=== PATIENT | female | born 1945 | race Caucasian/White ===

== ENCOUNTER 2016-05-13 01:05 | Inpatient (IN) | payer MEDICARE ==
[~2016-05-13] VITALS: Ht 154.9 cm; Wt 46.1 kg
[~2016-05-13 01:05] MED LIST: ALLER-CHLOR4 MG PO; ASPIRIN325 MG PO; ATIVAN0.5 MG PO; ATROVENT 0.03%30 ML NS; DALIRESP500 MCG PO; DULERA 100 MCG8.8 GM INH; FLUTICASONE PRO16 GM NASAL; IPRAT-ALBUT 0.5-3 ML UPD; LIPITOR40 MG PO; MUCINEX DM ER1 EAC1 PO; NICODERM C1 PATCH .1 TD; NICODERM C1 PATCH .1 TRANSDERM; OMNICEF300 MG PO; ORAPRED ODT10 MG/TAB PO; PERFOROMIS20 MCG/21 NEB; PREDNISONE20 MG PO; PROZAC20 MG PO; PULMICORT0.5 MG/21 INH; SINGULAIR10 MG PO; SYNTHROID50 MCG PO; ULTRAM50 MG PO; VENTOLIN HFA18 GM INH; VITAMIN D5000 UNIT PO; ZITHROMAX TRI-500 MG PO
[2016-05-13 01:36] LABS: BASOPHILS 0.1 % (0.0-2.0); EOSINOPHILS 0 % (0-7); HEMATOCRIT 56.3 % (36.0-48.0); HEMOGLOBIN 18.6 g/dL (12-16); IMMATURE GRANULOCYTES 0.1 % (0-5); LYMPHOCYTES 18.2 % (15-50); MCH 31.4 pg (26.0-34.0); MCV 95.1 fL (80.0-100.0); MEAN PLATELET VOLUME 9.6 fL (7.4-10.4); MONOCYTES 9.8 % (2-11); NEUTROPHILS 71.8 % (40-80); PLATELET COUNT 179 10x3/uL (130-400); RBC 5.92 10x6/uL (4.00-5.40); RDW 14.2 % (11.5-14.5); WBC 8.4 10x3/uL (4.8-10.8)
[2016-05-13 02:01] LABS: ALKALINE PHOSPHATASE 101 U/L (46-116); ALT (SGPT) 21 U/L (10-68); CALC OSMOLALITY 275 mosm/kg (275-300); CALCIUM 9.6 mg/dL (8.5-10.1); CARBON DIOXIDE 33.3 mmol/L (21.0-32.0); CHLORIDE - SERUM 96 mmol/L (98-107); CREATININE - SERUM 0.7 mg/dL (0.6-1.3); GLUCOSE 132 mg/dL (74-106); POTASSIUM - SERUM 4.6 mmol/L (3.5-5.1); PROTEIN - SERUM 8.5 g/dL (6.4-8.2); SODIUM 137 mmol/L (136-145); UREA NITROGEN 13 mg/dL (7-18); eGFR NON AFRICAN AMERICAN 87 mL/min (90-120)
--- NOTE | 2016-05-13 04:02 | NUR ---
RECEIVED FROM ER, VITALS ARE STABLE, IV-RAC-SL, 02-2L, PT DENIES ANY NEEDS, CALL LIGHT IN REACH, BED IS LOW, SRX2
[2016-05-13] MEDS ORDERED: LIPITOR80 MG PO (04:09)
--- NOTE | 2016-05-13 04:11 | NUR ---
PT ARRIVED FROM ER VIA STRETCHER WITH DX COPD EXACERBATION. NO DISTRESS NOTED. WILL CONTINUE TO MONITOR. SR UP X2, CALL LIGHT WITHIN REACH.
[2016-05-13 04:27] VITALS: BP 152/79; BMI 20.2
[2016-05-13 07:28] VITALS: BP 139/71
[2016-05-13 11:57] VITALS: BP 168/86
[2016-05-13 15:10] VITALS: BP 126/72
--- NOTE | 2016-05-13 19:20 | NUR ---
RESUMED CARE OF PT, 02-2L, IV-RAC-SL,SITTING UP ON SIDE OF BED, VISITING WITH DAUGHTER, DENIES ANY NEEDS, CALL LIGHT IN REACH, WILL CONTINUE TO MONITOR
[2016-05-13 20:00] VITALS: BP 127/73
--- NOTE | 2016-05-13 23:49 | NUR ---
LOGISTIC SPECIALIST AT BEDSIDE TO OBTAIN VITALS, CALL LIGHT IN REACH. WILL CONTINUE TO MONITOR.
[2016-05-14] VITALS: BP 125/76
--- NOTE | 2016-05-14 02:22 | NUR ---
SLEEPING, BED IS LOW, SRX2, CALL LIGHT IN REACH
[2016-05-14 04:00] VITALS: BP 117/72
[2016-05-14 05:10] LABS: BASOPHILS 0 % (0.0-2.0); EOSINOPHILS 0 % (0-7); HEMATOCRIT 48.9 % (36.0-48.0); HEMOGLOBIN 15.6 g/dL (12-16); IMMATURE GRANULOCYTES 0.3 % (0-5); LYMPHOCYTES 4.8 % (15-50); MCH 30.5 pg (26.0-34.0); MCHC 31.9 g/dL (31.0-37.0); MCV 95.7 fL (80.0-100.0); MEAN PLATELET VOLUME 9.6 fL (7.4-10.4); MONOCYTES 3.2 % (2-11); NEUTROPHILS 91.7 % (40-80); PLATELET COUNT 160 10x3/uL (130-400); RBC 5.11 10x6/uL (4.00-5.40); RDW 14.1 % (11.5-14.5); WBC 9.2 10x3/uL (4.8-10.8)
[2016-05-14 05:52] LABS: CALC OSMOLALITY 277 mosm/kg (275-300); CALCIUM 8.7 mg/dL (8.5-10.1); CHLORIDE - SERUM 98 mmol/L (98-107); CREATININE - SERUM 0.6 mg/dL (0.6-1.3); GLUCOSE 162 mg/dL (74-106); MAGNESIUM - SERUM 1.8 mg/dL (1.8-2.4); POTASSIUM - SERUM 4.5 mmol/L (3.5-5.1); SODIUM 136 mmol/L (136-145); eGFR NON AFRICAN AMERICAN > 90 mL/min (90-120)
[2016-05-14 06:00] LABS: UREA NITROGEN 18 mg/dL (7-18)
--- NOTE | 2016-05-14 07:31 | NUR ---
AM ROUNDING- PT LAYING IN BED ON BACK WITH EYES CLOSED RESTING. ON EP, WILL CHECK AM LABS. ON 02 AT 2L VIA NC. IV SEEN TO RIGHT AC THAT IS SALINE LOCKED AND PATENT. ON LOVENOX INJECTION PER REPORT FOR DVT PREVENTION. NO MONITOR. UP AD PHU. NO NEED AT CURRENT TIME. WILL CONTINUE TO MONITOR.
[2016-05-14 08:00] VITALS: BP 139/108
[2016-05-14] MEDS ORDERED: MEDROL DOSE PACK4 MG PO (08:50)
--- NOTE | 2016-05-14 11:29 | NUR ---
Patient Name: DAVE PARSON Admission Status: ER Accout number: [id number] Admission Date: 05-13-2016 : 1945 Admission Diagnosis: Attending: JUAN Current LOS: 1 Anticipated DC Date: 05-16-2016 Planned Disposition: Home Primary Insurance: [employer] ADV Discharge Planning Comments: * Is the patient Alert and Oriented? Yes 0 * How many steps to enter\exit or inside your home? 1 0 * PCP DR. SOSA 0 * Pharmacy [facility] 0 * Preadmission Environment Home with Family 0 * ADLs Independent 0 * Equipment Nebulizer Oxygen 0 * Other Equipment OXYGEN AT NIGHT ONLY [facility]IENT- MEDICAL EQUIPMENT PROVIDER 0 * List name and contact numbers for known caregivers / representatives who currently or will assist patient after discharge: DEMETRIO WELSH, 0 * Community resources currently utilized None 0 * Please name any agencies selected above. NONE 0 * Additional services required to return to the preadmission environment? No 0 * Can the patient safely return to the preadmission environment? Yes 0 * Has this patient been hospitalized within the prior 30 days at any hospital? No 0 CM MET WITH PT IN ROOM TO DISCUSS DISCHARGE PLANNING AND NEEDS. 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 PT HAS HOME OXYGEN THAT SHE WEARS AT NIGHT ONLY AND [facility]. PT HAS NO OUTSIDE SERVICES ASSISTING IN THE HOME. CM DISCUSSED AVAILABILITY OF HOME HEALTH, REHAB SERVICES AND MEDICAL EQUIPMENT. PT DENIES DISCHARGE NEEDS, REPORTS HER GRANDSONSON OR DAUGHTER WILL PICK HER UP FOR DISCHARGE HOME. IMPORTANT MESSAGE FROM MEDICARE PROVIDED AND EXPLAINED. PT PLANS DISCHARGE HOME WITH FAMILY, DENIES DISCHARGE NEEDS. CM TO FOLLOW AND ASSIST NEEDED. Building Construction Engineer: Satish Parker
[2016-05-14 12:00] VITALS: BP 156/78
[2016-05-14 12:25] VITALS: Ht 154.9 cm; Wt 46.1 kg
--- NOTE | 2016-05-14 14:14 | NUR ---
UPON WALKING INTO PTS ROOM TO GIVE SCHEDULED MEDICATION, NOTICED PT USING HER VAPE. INFORMED PT THAT IT IS AGAISNT POLICY HERE AND SHE CANNOT DO IT. ALSO INFORMED PT THAT SHE HAS A NICOTINE PATCH ON AND USING HER VAPE AT THE SAME TIME CAN CAUSE HEART PROBLEMS WITH TOO MUCH NICOTINE.
[2016-05-14 16:00] VITALS: BP 170/98
--- NOTE | 2016-05-14 16:16 | NUR ---
PT OFF FLOOR TO GO SMOKE.
--- NOTE | 2016-05-14 18:01 | NUR ---
PT SITTING UP IN BED DRINKING COFFEE. NO NEED AT CURRENT TIME. WILL CONTINUE TO MONITOR.
--- NOTE | 2016-05-14 19:10 | NUR ---
PT RESTING NAD NOTED
--- NOTE | 2016-05-14 19:25 | NUR ---
RECEIVED REPORT, 2L, IV-RAC-SL, SITTING ON SIDE OF BED, DENIES ANY NEEDS, CALL LIGHT IN REACH, BED IS LOW, SRX2, WILL CONTINUE TO MONITOR
[2016-05-14 22:18] VITALS: BP 154/72
[2016-05-15 01:42] VITALS: BP 150/83
--- NOTE | 2016-05-15 03:46 | NUR ---
SLEEPING, INFUSING IV ROCEPHIN, CALL LIGHT IN REACH, WILL CONTINUE TO MONITOR
[2016-05-15 05:15] LABS: BASOPHILS 0 % (0.0-2.0); EOSINOPHILS 0 % (0-7); HEMATOCRIT 47.3 % (36.0-48.0); HEMOGLOBIN 15.3 g/dL (12-16); IMMATURE GRANULOCYTES 0.4 % (0-5); LYMPHOCYTES 5.7 % (15-50); MCH 30.7 pg (26.0-34.0); MCHC 32.3 g/dL (31.0-37.0); MCV 94.8 fL (80.0-100.0); MEAN PLATELET VOLUME 9.6 fL (7.4-10.4); MONOCYTES 4.8 % (2-11); NEUTROPHILS 89.1 % (40-80); PLATELET COUNT 163 10x3/uL (130-400); RBC 4.99 10x6/uL (4.00-5.40); RDW 13.9 % (11.5-14.5)
[2016-05-15 05:23] LABS: WBC 13.4 10x3/uL (4.8-10.8)
[2016-05-15 05:26] LABS: CALC OSMOLALITY 278 mosm/kg (275-300); CHLORIDE - SERUM 97 mmol/L (98-107); CREATININE - SERUM 0.7 mg/dL (0.6-1.3); GLUCOSE 131 mg/dL (74-106); POTASSIUM - SERUM 4.3 mmol/L (3.5-5.1); SODIUM 137 mmol/L (136-145); UREA NITROGEN 21 mg/dL (7-18); eGFR NON AFRICAN AMERICAN 87 mL/min (90-120)
[2016-05-15 05:48] VITALS: BP 152/78
--- NOTE | 2016-05-15 07:20 | NUR ---
AM ROUNDING- PT SITTING UP IN BED RECEIVING BREATHING TREATMENT. ON EP. IV SEEN TO RIGHT AC THAT IS SALINE LOCKED AND PATENT. ON LOVENOX INJECTION FOR DVT. UP AD PHU. ON 02 AT 2L VIA NC (WHEN NOT HAVING BREATHING TREATMENT). PER REPORT FROM CERTIFIED OPHTHALMIC ASSISTANT NURSE CHRIS, PT IS POSSIBLY GOING HOME TODAY. WILL CONTINUE TO MONITOR.
[2016-05-15 07:45] VITALS: BP 137/80
[2016-05-15 12:20] VITALS: BP 138/70
[2016-05-15] MEDS ORDERED: MUCINEX DM ER1 EAC1 PO (14:01)
[2016-05-15] MEDS ORDERED: SINGULAIR10 MG PO (14:01)
[2016-05-15] MEDS ORDERED: BENZONATATE200 MG PO (14:01)
[2016-05-15] MEDS ORDERED: DALIRESP500 MCG PO (14:01)
[2016-05-15] MEDS ORDERED: OMNICEF300 MG PO (14:59)
[2016-05-15] MEDS ORDERED: SYMBICORT 16010.2 GM INH (14:59)
[2016-05-15] MEDS ORDERED: PREDNISONE10 MG PO (15:01)
[2016-05-15 15:43] VITALS: BP 128/85
--- NOTE | 2016-05-15 17:35 | NUR ---
PTS D/C PAPERWORK EXPLAINED TO PT AND SIGNED. PLACED D/C PAPERWORK IN CHART. AWAITING LISBETH HANNA TO TAKE PT DOWN VIA WHEELCHAIR.
--- NOTE | 2016-05-15 17:41 | NUR ---
PT D/C VIA WHEELCHAIR.
--- NOTE | 2016-05-16 15:24 | DS ---
PATIENT:DAVE PARSON :45 MEDICAL RECORD: [id number] DISCHARGE SUMMARY ADMISSION DATE: 05/13/16 DISCHARGE DATE: 05/15/16 DATE OF ADMISSION: 05/13/2016 DATE OF DISCHARGE: 05/15/2016 All events, lab procedures, diagnostic testing are well documented in the records. Please refer to the history of the present illness, H&P. ADMITTING DIAGNOSES: Chronic obstructive pulmonary disease exacerbation, asthma exacerbation, polycythemia, smoking cessation, hypoxia. HOSPITAL COURSE: This is a lady patient of Dr. Mistry, who is admitted with diagnoses as outlined above. Details are well-outlined in the history of present illness, H&P. All events, lab procedures and diagnostic testing are well documented in the records. The patient was admitted, started on IV steroids, aggressive pulmonary toilet. Pulmonary was consulted for pulmonary management, their recommendations were followed. Dr. Salazar saw the patient originally and then the patient was seen by Dr. Ennis. Overall, she did well. She was on Rocephin and Zithromax while here, updrafts, IV steroids, mucolytics, etc. Overall, did well. She is stable for dismissal home today. She will have follow up with Dr. Salazar or Dr. Ennis in 2-3 weeks with a PA and lateral chest x-ray. Follow up with Dr. Mistry in 1 week. Smoking cessation advised. Hemoglobin came down to 15. Her white count today is 13.4, hemoglobin 15 and platelets 163. Sodium 137, potassium 4.3, chloride 97, CO2 of 36, BUN 21 and serum creatinine 0.7. Blood sugar 131. She is dismissed home. COPD exacerbation, polycythemia improves and nicotine dependence with withdrawal. Smoking cessation advised. Please refer to med rec. She has a nebulizer at home for which she uses her albuterol. She is put on Symbicort as a new med. We will do 4 more days of Omnicef. Other home medicines are continued. She is on a steroid taper. Other medicines added per pulmonary, Daliresp, Singulair, Mucinex and Tessalon Perles p.r.n. Please refer to med rec. Greater than 30 minutes was spent on this discharge. TRANSINT:[id number] Voice Confirmation ID: [id number] DOCUMENT ID: [id number] Dictated By: ZEFERINO VALDES RN I have interviewed/examined the above patient and agree with these documented findings. DISCHARGE SUMMARY REPORT [id number] DAVE PARSON AMY MD at 1524 at 1612 CC: [id number] DICTATION DATE: 05/15/16 1605 [place] OPERATOR: 05/15/162035 DIS IN 05/15/16 [id number] [place] [id number]
== END 2016-05-15 17:44 | disposition home or self-care (01) | DRG 190 ==
LOC: D.ER 01:05 → D.M2 02:56
PROVIDERS: Emergency Medicine; Internal Medicine Pulmonary Disease; ADMIT Family Medicine
DX: J44.1 Chronic obstructive pulmonary disease with (acute) exacerbation (principal); J96.22 Acute and chronic respiratory failure with hypercapnia; J96.21 Acute and chronic respiratory failure with hypoxia; J45.901 Unspecified asthma with (acute) exacerbation; F17.203 Nicotine dependence unspecified, with withdrawal; E03.9 Hypothyroidism, unspecified; E78.5 Hyperlipidemia, unspecified; I25.10 Atherosclerotic heart disease of native coronary artery without angina pectoris; I10 Essential (primary) hypertension; D75.1 Secondary polycythemia; I34.0 Nonrheumatic mitral (valve) insufficiency; J01.90 Acute sinusitis, unspecified; R63.4 Abnormal weight loss

== ENCOUNTER → 2018-12-19 08:24 | Outpatient (CLI) | payer OTHER ==
[2016-05-14 12:25] VITALS: BMI 20.6
[~2018-12-19 08:24] MED LIST changes: +BENZONATATE200 MG PO; +LIPITOR80 MG PO; +MEDROL DOSE PACK4 MG PO; +PREDNISONE10 MG PO; +SYMBICORT 16010.2 GM INH
== END | disposition home or self-care (01) ==
LOC: D.CT 08:24
PROVIDERS: ATTEND Emergency Medicine
DX: I65.22 Occlusion and stenosis of left carotid artery (principal)